=== PATIENT | female | born 1935 | race Caucasian/White ===

== ENCOUNTER 2017-05-14 12:56 | Emergency (ER) | payer MEDICARE ==
[2017-05-14] MEDS ORDERED: Aspirin Low Dose CHEW TAB* 81 MG PO ONE (13:10)
--- NOTE | 2017-05-14 13:41 | RAD ---
HISTORY: Syncope COMPARISONS: May 26, 2016 VIEWS:1: Single frontal portable view of the chest at 1:20 PM FINDINGS: LINES AND TUBES: None. CARDIOMEDIASTINAL SILHOUETTE: The cardiomediastinal silhouette is normal for portable technique. PLEURA: The costophrenic angles are sharp. No pleural abnormalities are noted. LUNG PARENCHYMA: The lungs are clear. ABDOMEN: The upper abdomen is clear. There is no subphrenic gas. BONES AND SOFT TISSUES: No bone or soft tissue abnormalities are noted. IMPRESSION: NO ACTIVE CARDIOPULMONARY DISEASE.
--- NOTE | 2017-05-14 13:54 | RAD ---
Indication: Fall, syncope. CT of the brain was performed without IV contrast. Ventricular structures are midline. No midline shift is noted. The extra-axial spaces are unremarkable. There is no evidence of intracranial mass or hemorrhage. No other high or low density lesions are identified. Mastoid air cells and paranasal sinuses are unremarkable. IMPRESSION: No intracranial mass or hemorrhage is noted.
--- NOTE | 2017-05-14 14:02 | RAD ---
Indication: Fall, T10 tenderness. CT of the thoracic spine was obtained in the axial plane. Sagittal and coronal reconstructed images were obtained. Skull base demonstrates no fracture. Mastoid air cells are unremarkable. Degenerative changes of the atlantoaxial joint is noted. Disc space narrowing at C3-C4, C4-C5, C5-C6 and C6-C7 is noted. No fracture is identified. Mild wedge deformity of T1 is noted. This is likely old. IMPRESSION: No fracture is identified. Multilevel degenerative disc disease at C2-C3, C3-C4, C4-C5, C5-C6 and C6-C7. No fracture is noted.
--- NOTE | 2017-05-14 14:03 | RAD ---
HISTORY: Fall, T10 tenderness COMPARISONS: None TECHNIQUE: Multiple contiguous axial CT scans were obtained of the thoracic spine without intravenous contrast, with coronal and sagittal multiplanar reformations. FINDINGS: SPINAL CANAL: Evaluation of the central canal is limited on CT technique; however, there is no obvious canalicular mass or epidural hemorrhage. ALIGNMENT: The alignment is normal. VERTEBRAL BODIES: The vertebral bodies are preserved in height. There is multilevel anterolateral marginal osteophyte formation. Multiple Schmorl's nodes are noted. There is diffuse osteopenia. JOINTS: There is osteoarthritis of the costovertebral joints. MUSCULATURE: Unremarkable INTERVERTEBRAL DISCS: There is diffuse loss of intervertebral disc height throughout the spine. AXIAL IMAGES: There is no osseous central canal stenosis or neuroforaminal narrowing. SOFT TISSUES: The visualized soft tissues of the chest and abdomen are unremarkable. OTHER: None IMPRESSION: OSTEOPENIA. DEGENERATIVE DISC DISEASE AND OSTEOARTHRITIS. THE VERTEBRAL BODIES ARE PRESERVED IN HEIGHT
[2017-05-14 14:19] LABS: Hematocrit 36 % (35-47); Hemoglobin 11.9 g/dl (12.0-16.0); Mean Corpuscular HGB Conc 34 g/dl (31-36); Mean Corpuscular Hemoglobin 31 pg (27-31); Mean Corpuscular Volume 93 fL (80-97); Mean Platelet Volume 8 um3 (7.4-10.4); Red Blood Count 3.81 10^6/ul (4.0-5.4); Red Cell Distribution Width 13 % (10.5-15); White Blood Count 6.5 10^3/ul (3.5-10.8)
[2017-05-14 14:37] LABS: Albumin 3.7 g/dL (3.2-5.2); BUN/Creatinine Ratio 19.4 (8-20); EGFR African American 99.7 (>60); EGFR Non-African American 77.5 (>60); Globulin 3.1 g/dL (2-4); Potassium 3.7 mmol/L (3.5-5.0); Total Bilirubin 0.6 mg/dL (0.2-1.0); Total Protein 6.8 g/dL (6.4-8.9)
[2017-05-14 14:38] LABS: Troponin I 0.01 ng/mL (<0.04)
[2017-05-14 15:45] LABS: Urine Bacteria 1+ (Absent); Urine Bilirubin Negative (Negative); Urine Glucose Negative (Negative); Urine Nitrite Positive (Negative)
[2017-05-14] MEDS ORDERED: Ciprofloxacin TAB* 500 MG PO ONE (15:46)
--- NOTE | 2017-05-14 15:49 | ED ---
Layla Vazquez Thomas, scribed for Elle Andujar MD on 05/14/17 at 1323 . Syncope/Near Syncope - HPI Summary HPI Summary: The pt is a 82 y/o F presenting to the ED c/o a fall that occurred last night at 22:00 during a syncopal episode. She denies any memory of this syncope and is unsure whether or not she struck her head. Following this syncope, she was unable to stand up and was on the floor for three hours before she was able to use the bed to pull herself up. She denies feeling dizzy before this syncopal episodes; however, she has been intermittently dizzy for the last month and reports 4 falls in the last month similar to the one that occurred last night. She has been told that she has not been drinking enough water, and she reports that drinking water alleviates this dizziness. Pt additionally c/o neck pain, chills (yesterday and today), and chronic urinary frequency. She also wears a lidocaine patch on her arm for an unspecified chronic complaint. Pt denies fever , cough, rhinorrhea, dysuria, hematuria, CP, SOB, or any other pains. PMHx: DM ( takes metformin). SHx: no smoking, no alcohol use, no illicit drug use. She does not normally check her blood glucose. She is scheduled for an upcoming appointment with Dr. Bone regarding her dizziness. She is not on blood thinners. She lives at [facility] [place] that seems to be assisted living. Her PCP is Dr. Gutierrez. She is accompanied by her son. - History Of Current Complaint Chief Complaint: EDSyncope Time Seen by Provider: 05/14/17 13:09 Hx Obtained From: Patient, Family/Mesh Man - son in room Onset/Duration: Sudden Onset, Lasting Hours - syncopal episode yesterday at 22: 00 Context: Unwitnessed Activity At Onset: Other - Walking to bathroom Associated Signs And Symptoms: Dizzy - intermittent for the last month, Other - POS: neck pain, chills; NEG: fever, cough, rhinorrhea, dysuria, hematuria, CP, SOB, any other pains Related History: Similar Episode/Dx as - syncopal episodes with dizziness 4x in the last month - Allergies/Home Medications Allergies/Adverse Reactions: Allergies Allergy/AdvReac Type Severity Reaction Status Date / Time Codeine Allergy Stomach Verified 04/19/14 09:48 Cramps Oxycodone Allergy Nausea And Verified 04/19/14 09:48 Vomiting Penicillins Allergy See Comment Verified 04/19/14 09:48 Home Medications: Home Medications Cholecalciferol TAB* [Vitamin D TAB*] 1,000 unit PO DAILY 05/14/17 [History Confirmed 05/14/17] Cyanocobalamin TAB* [Vitamin B12 TAB*] 1,000 mcg PO DAILY 05/14/17 [History Confirmed 05/14/17] Fexofenadine (NF) [Kamila 180 (NF)] 180 mg PO DAILY PRN 05/14/17 [History Confirmed 05/14/17] Gabapentin CAP(*) [Neurontin 100 mg CAP(*)] 100 mg PO BEDTIME 05/14/17 [History Confirmed 05/14/17] Glucosamine-Chondroitin [Osteo Bi-Flex Regular Str] 1 tab PO DAILY 05/14/17 [ History Confirmed 05/14/17] Metformin ER (NF) [Glucophage ER 750 MG TAB (NF)] 750 mg PO DAILY 05/14/17 [ History Confirmed 05/14/17] Multiple Vitamins W/ Minerals [Centrum Silver 50+Women] 1 tab PO DAILY 05/14/17 [History Confirmed 05/14/17] Pregabalin CAP(*) [Lyrica CAP(*)] 50 mg PO DAILY 05/14/17 [History Confirmed ] Probiotic Product [Probiotic Daily] 1 cap PO DAILY 05/14/17 [History Confirmed 05/14/17] Timolol 0.5% OPTH.ELSIE* [Timoptic 0.5% Opth*] 1 drop BOTH EYES BEDTIME 05/14/17 [ History Confirmed 05/14/17] PMH/Surg Hx/FS Hx/Imm Hx Previously Healthy: No Endocrine/Hematology History: Reports: Hx Diabetes - metformin Cardiovascular History: Denies: Hx Myocardial Infarction - Cancer History Hx Chemotherapy: No Hx Radiation Therapy: No - Surgical History Surgery Procedure, Year, and Place: Appendectomy Infectious Disease History: No Infectious Disease History: Denies: Traveled Outside the [place] in Last 30 Days - Family History Known Family History: Positive: Diabetes - Social History Alcohol Use: None Substance Use Type: Reports: None Smoking Status (MU): Never Smoked Tobacco Review of Systems Positive: Chills. Negative: Fever Negative: Nasal Discharge Negative: Chest Pain Positive: Cough. Negative: Shortness Of Breath Negative: dysuria, hematuria Positive: Other - POS: neck pain; NEG: any other pains Neurological: Other - POS: intermittently dizzy over the last month Positive: Syncope - with fall, last night at 22:00, unwitnessed All Other Systems Reviewed And Are Negative: Yes Physical Exam Triage Information Reviewed: Yes Vital Signs On Initial Exam: Initial Vitals Temp Pulse Resp BP Pulse Ox 97.5 F 87 14 134/90 97 05/14/17 12:57 05/14/17 12:57 05/14/17 12:57 05/14/17 12:57 05/14/17 12:57 Vital Signs Reviewed: Yes Appearance: Positive: Well-Appearing, No Pain Distress Skin: Positive: Warm, Skin Color Reflects Adequate Perfusion, Dry Eyes: Positive: EOMI, MARYCARMEN ENT: Positive: Pharynx normal, TMs normal Neck: Positive: Supple, Nontender Respiratory/Lung Sounds: Positive: Clear to Auscultation, Breath Sounds Present. Negative: Rales, Rhonchi, Wheezes Cardiovascular: Positive: RRR. Negative: Murmur, Rub, Other - NEG: gallop Abdomen Description: Positive: Nontender, Soft. Negative: Distended, Guarding, Other: - NEG: rebound Bowel Sounds: Positive: Present Musculoskeletal: Positive: Strength/ROM Intact, Other - There is some paraspinal tenderness about T10. There is also some paraspinal tenderness at her neck.. Negative: Edema Left, Edema Right Neurological: Positive: Sensory/Motor Intact, Alert, Oriented to Person Place, Time, CN Intact II-III Psychiatric: Positive: Affect/Mood Appropriate - Chan Coma Scale Coma Scale Total: 15 Diagnostics - Vital Signs Vital Signs Temp Pulse Resp BP Pulse Ox 05/14/17 13:20 98 05/14/17 13:15 79 17 93 05/14/17 13:13 114/62 05/14/17 13:09 98.7 F 80 16 114/62 100 05/14/17 12:57 97.5 F 87 14 134/90 97 - Laboratory Lab Results: Lab Results 05/14/17 05/14/17 05/14/17 Range/Units 14:03 14:03 14:03 WBC 6.5 (3.5-10.8) 10^3/ul RBC 3.81 L (4.0-5.4) 10^6/ul Hgb 11.9 L (12.0-16.0) g/dl Hct 36 (35-47) % MCV 93 (80-97) fL MCH 31 (27-31) pg MCHC 34 (31-36) g/dl RDW 13 (10.5-15) % Plt Count 235 (150-450) 10^3/ul MPV 8 (7.4-10.4) um3 Neut % (Auto) 68.6 (38-83) % Lymph % (Auto) 20.2 L (25-47) % [place] % (Auto) 9.3 H (1-9) % Eos % (Auto) 0.9 (0-6) % Baso % (Auto) 1.0 (0-2) % Absolute Neuts (auto) 4.4 (1.5-7.7) 10^3/ul Absolute Lymphs (auto) 1.3 (1.0-4.8) 10^3/ul Absolute Monos (auto) 0.6 (0-0.8) 10^3/ul Absolute Eos (auto) 0.1 (0-0.6) 10^3/ul Absolute Basos (auto) 0.1 (0-0.2) 10^3/ul Absolute Nucleated RBC 0 10^3/ul Nucleated RBC % 0 Sodium 138 (133-145) mmol/L Potassium 3.7 (3.5-5.0) mmol/L Chloride 103 (101-111) mmol/L Carbon Dioxide 28 (22-32) mmol/L Anion Gap 7 (2-11) mmol/L BUN 14 (6-24) mg/dL Creatinine 0.72 (0.51-0.95) mg/dL Est GFR ( Amer) 99.7 (>60) Est GFR (Non-Af Amer) 77.5 (>60) BUN/Creatinine Ratio 19.4 (8-20) Glucose 117 H (70-100) mg/dL Lactic Acid 1.1 (0.5-2.0) mmol/L Calcium 9.0 (8.6-10.3) mg/dL Total Bilirubin 0.60 (0.2-1.0) mg/dL AST 19 (13-39) U/L ALT 17 (7-52) U/L Alkaline Phosphatase 58 (34-104) U/L Total Creatine Kinase 185 (10-223) U/L Troponin I 0.01 (<0.04) ng/mL Total Protein 6.8 (6.4-8.9) g/dL Albumin 3.7 (3.2-5.2) g/dL Globulin 3.1 (2-4) g/dL Albumin/Globulin Ratio 1.2 (1-3) Urine Color Urine Appearance Urine pH (5-9) Ur Specific [place] (1.010-1.030) Urine Protein (Negative) Urine Ketones (Negative) Urine Blood (Negative) Urine Nitrate (Negative) Urine Bilirubin (Negative) Urine Urobilinogen (Negative) Ur Leukocyte Esterase (Negative) Urine WBC (Auto) (Absent) Urine RBC (Auto) (Absent) Ur Squamous Epith Cells (Absent) Urine Bacteria (Absent) Hyaline Casts (Absent) Urine Glucose (Negative) 05/14/17 Range/Units 14:50 WBC (3.5-10.8) 10^3/ul RBC (4.0-5.4) 10^6/ul Hgb (12.0-16.0) g/dl Hct (35-47) % MCV (80-97) fL MCH (27-31) pg MCHC (31-36) g/dl RDW (10.5-15) % Plt Count (150-450) 10^3/ul MPV (7.4-10.4) um3 Neut % (Auto) (38-83) % Lymph % (Auto) (25-47) % [place] % (Auto) (1-9) % Eos % (Auto) (0-6) % Baso % (Auto) (0-2) % Absolute Neuts (auto) (1.5-7.7) 10^3/ul Absolute Lymphs (auto) (1.0-4.8) 10^3/ul Absolute Monos (auto) (0-0.8) 10^3/ul Absolute Eos (auto) (0-0.6) 10^3/ul Absolute Basos (auto) (0-0.2) 10^3/ul Absolute Nucleated RBC 10^3/ul Nucleated RBC % Sodium (133-145) mmol/L Potassium (3.5-5.0) mmol/L Chloride (101-111) mmol/L Carbon Dioxide (22-32) mmol/L Anion Gap (2-11) mmol/L BUN (6-24) mg/dL Creatinine (0.51-0.95) mg/dL Est GFR ( Amer) (>60) Est GFR (Non-Af Amer) (>60) BUN/Creatinine Ratio (8-20) Glucose (70-100) mg/dL Lactic Acid (0.5-2.0) mmol/L Calcium (8.6-10.3) mg/dL Total Bilirubin (0.2-1.0) mg/dL AST (13-39) U/L ALT (7-52) U/L Alkaline Phosphatase (34-104) U/L Total Creatine Kinase (10-223) U/L Troponin I (<0.04) ng/mL Total Protein (6.4-8.9) g/dL Albumin (3.2-5.2) g/dL Globulin (2-4) g/dL Albumin/Globulin Ratio (1-3) Urine Color Yellow Urine Appearance Cloudy Urine pH 6.0 (5-9) Ur Specific [place] 1.012 (1.010-1.030) Urine Protein Negative (Negative) Urine Ketones Negative (Negative) Urine Blood Negative (Negative) Urine Nitrate Positive H (Negative) Urine Bilirubin Negative (Negative) Urine Urobilinogen Negative (Negative) Ur Leukocyte Esterase 3+ H (Negative) Urine WBC (Auto) 3+(>20/hpf) H (Absent) Urine RBC (Auto) Trace(0-2/hpf) (Absent) Ur Squamous Epith Cells Present H (Absent) Urine Bacteria 1+ H (Absent) Hyaline Casts Present H (Absent) Urine Glucose Negative (Negative) Result Diagrams: 05/14/17 14:03 05/14/17 14:03 Lab Statement: Any lab studies that have been ordered have been reviewed, and results considered in the medical decision making process. - Radiology CXR Xray Interpretation: No Acute Changes - CXR reveals no active cardiopulmonary disease. ED physician has reviewed this radiology report and agrees. Radiology Interpretation Completed By: Radiologist - CT CT Brain CT Interpretation: No Acute Changes - CT Brain reveals no intracranial mass or hemorrhage is noted. ED physician has reviewed this radiology report and agrees. CT Interpretation Completed By: Radiologist CT C-Spine CT Interpretation: No Acute Changes - CT C-Spine reveals No fracture is identified. Multilevel degenerative disc disease at C2-C3, C3-C4, C4-C5, C5-C6 and C6-C7. No fracture is noted. ED physician has reviewed this radiology report and agrees. CT Interpretation Completed By: Radiologist CT T-Spine CT Interpretation: No Acute Changes - CT T-Spine reveals OSTEOPENIA. DEGENERATIVE DISC DISEASE AND OSTEOARTHRITIS. THE VERTEBRAL BODIES ARE PRESERVED IN HEIGHT. ED physician has reviewed this radiology report and agrees. CT Interpretation Completed By: Radiologist - EKG 13:05 Cardiac Rate: NL - 81 BPM EKG Interpretation: Sinus rhythm with PVCs. Nonspecific lateral T-wave changes EKG Comparison: Other - Nonspecific lateral T-wave changes are new compared to 12/17/09 Course/Dx Course Of Treatment: 82 yo female who passed out last night she has had multiple episodes of near syncope in the past, she did not have any preceding symptoms. she does have a urine that looks like it could be infected. A discussion at length was had with pt and her son about obv admission but pt and her son are fine with her going home, pt was adament - Diagnoses Provider Diagnoses: UTI (urinary tract infection), Syncope, Cervical strain Discharge - Discharge Plan Condition: Stable Disposition: HOME Prescriptions: Ciprofloxacin TAB* [Cipro 500 MG TAB*] 500 mg PO BID #[id number] tab Referrals: Leilani Gutierrez DIRECTOR OF VITAL STATISTICS [Primary Care Provider] - 3 Days The documentation as recorded by the Layla negrete Thomas accurately reflects the service I personally performed and the decisions made by me, Elle Andujar MD.
[2017-05-14 16:03] VITALS: BP 109/71
--- NOTE | 2017-05-16 18:11 | PN ---
Progress Note - Progress Note Date of Service: 05/16/17 Note: Patient urine culture grew E coli >100,000. Patient placed on cipro which final culture shows that is resistant to. Due to allergy with PCN and resistance to bactrim will use macrobid which is sensitive to. Macrobid 100mg bid x7 days sent to pharmacy. spoke with patient and informed of need to change medication.
== END 2017-05-14 16:19 | disposition home or self-care (01) ==
LOC: ED 12:56
DX: N39.0 Urinary tract infection, site not specified (principal); R55 Syncope and collapse; S16.1XXA Strain of muscle, fascia and tendon at neck level, initial encounter; W19.XXXA Unspecified fall, initial encounter; Y93.9 Activity, unspecified; Y92.9 Unspecified place or not applicable; Y99.9 Unspecified external cause status
CPT/HCPCS: 36415; 70450; 71010; 72125; 72128; 80053; 81003; 81015; 82550; 83605; 84484; 85025; 87077; 87086; 87186; 93005; 99283; A9270-GY

== ENCOUNTER 2023-10-26 12:49 | Inpatient (IN) ==
[2023-10-26 13:30] LABS: ABS Basophils 0.2 10^3/uL (0.0-0.1); ABS Lymphocytes 0.5 10^3/uL (1.0-4.8); ABS Monocytes 0.7 10^3/uL (0.0-0.9); ABS Neutrophils 9.7 10^3/uL (1.5-7.6); ABS Nucleated RBC 0.01 10^3/ul; Eosinophil % 0.1 %; Hematocrit 36.6 % (35-45); Hemoglobin 12.6 g/dL (11.5-14.3); Lymphocyte % 4.6 %; Mean Corpuscular Hemoglobin 31.7 pg (27-33); Mean Corpuscular Hgb Conc 34.3 g/dL (31-36); Mean Corpuscular Volume 92.5 fL (80-97); Mean Platelet Volume 8.5 fL (7.5-11.2); Nucleated Red Blood Cells % 0.1 %/100WBC (0.0-0.8); Platelet Count 242 10^3/uL (150-450); Red Blood Count 3.96 10^6/uL (3.63-4.92); Red Cell Distribution Width 12.9 % (12-17); White Blood Count 11.1 10^3/uL (3.8-11.8)
[2023-10-26 13:45] LABS: Albumin 3.7 g/dL (3.2-5.2); C Reactive Protein 103.51 mg/L (<8.01); Calcium 8.9 mg/dL (8.6-10.3); Creatinine, Serum 0.78 mg/dL (0.51-0.95); Direct Bilirubin 0.2 mg/dL (0.03-0.18); Globulin 3.7 g/dL (2-4); HDL Cholesterol 37.2 mg/dL; Indirect Bilirubin 0.8 mg/dL (0.3-1.0); Total Protein 7.4 g/dL (6.4-8.9)
[2023-10-26 13:53] LABS: Activated Partial Thrombo Time 29.4 seconds (26.0-38.0); INR 1.09 (0.83-1.13)
[2023-10-26 14:13] LABS: Urine Appearance Turbid; Urine Bilirubin Negative (Negative); Urine Blood 1+ (Negative); Urine Color Yellow; Urine Glucose Negative (Negative); Urine Ketones Negative (Negative); Urine Nitrite 2+ (Negative); Urine Protein 1+ (>=30 mg/dL) (Negative); Urine Urobilinogen Negative (Negative)
[2023-10-26 14:22] LABS: Urine Bacteria 1+ /HPF (Absent); Urine Red Blood Cell 3+(>10/hpf) /HPF (0-Trace); Urine Renal Epithelial Cells Present /HPF (Absent); Urine Squamous Epithelial Cell Present /HPF (Absent); Urine White Blood Cell 3+(>20/hpf) /HPF (0-Trace)
[2023-10-26] MEDS: Cefepime 1 GM in Dextrose 1 GM/50 ML BAG IV ONE (14:58)
[2023-10-26] MEDS: Vancomycin 1,000 MG in NS 0.9% 250 ml 250 ML IVPB ONE (15:04)
[2023-10-26] MEDS: Lactated Ringers SEPSIS* BAG 2,040 ML IV ONE (15:20)
[2023-10-26 15:57] LABS: High Sensitivity Troponin 1 Hr 14 pg/mL (<15)
[2023-10-26] MEDS: Enoxaparin 40 MG/0.4 ML SYR SUBCUT SCH (18:40)
[2023-10-26] MEDS: Lactated Ringers 1000 ml BAG 1,000 ML IV ONE (20:22)
[2023-10-26] MEDS: Remdesivir 100 mg Vial 200 MG in NS 0.9% 250 ml 210 ML IV ONE (20:37)
[2023-10-26] MEDS: Clotrimazole 1% CREAM 30 gm TOPICAL SCH (22:34)
[2023-10-26] MEDS: CMCS:Dorzolamide/Timolol OPTH (NF) 10 ML BOT BOTH EYES SCH (23:10)
[2023-10-27 05:02] LABS: ABS Basophils 0.1 10^3/uL (0.0-0.1); ABS Lymphocytes 0.8 10^3/uL (1.0-4.8); ABS Monocytes 0.3 10^3/uL (0.0-0.9); ABS Neutrophils 12.2 10^3/uL (1.5-7.6); Hematocrit 35.6 % (35-45); Mean Corpuscular Hemoglobin 31.5 pg (27-33); Mean Corpuscular Hgb Conc 33.6 g/dL (31-36); Mean Corpuscular Volume 93.5 fL (80-97); Mean Platelet Volume 8.4 fL (7.5-11.2); Platelet Count 210 10^3/uL (150-450); Red Blood Count 3.81 10^6/uL (3.63-4.92); Red Cell Distribution Width 12.7 % (12-17); White Blood Count 13.4 10^3/uL (3.8-11.8)
[2023-10-27 05:12] LABS: INR 1.16 (0.83-1.13)
[2023-10-27 05:20] LABS: Albumin 3.5 g/dL (3.2-5.2); Calcium 8.7 mg/dL (8.6-10.3); Creatinine, Serum 0.73 mg/dL (0.51-0.95); Globulin 3.5 g/dL (2-4); Potassium 4.6 mmol/L (3.5-5.0); Total Bilirubin 0.5 mg/dL (0.2-1.0); eGFR CKD-EPI 79.1 (>60)
[2023-10-27] MEDS ORDERED: Dextrose 50% Syringe 50 ml 25 GM/50 ML SYRINGE IV PUSH PRN (07:24)
[2023-10-27] MEDS: cefTRIAXone 1 gm/50 mL D5W 1 GM/50 ML BAG IV SCH (20:24)
[2023-10-27] MEDS ORDERED: Remdesivir 100 mg Vial 100 MG in NS 0.9% 250 ml 230 ML IV SCH (21:00)
[2023-10-27] MEDS ORDERED: cefTRIAXone 1 gm/50 mL D5W 1 GM/50 ML BAG IV SCH (21:00)
[2023-10-27] MEDS: Remdesivir 100 mg Vial 100 MG in NS 0.9% 250 ml 230 ML IV SCH (21:40)
[2023-10-28] MEDS: Haloperidol 5 mg/ml SDV IV/IM 5 MG/ML AMP IM PRN ×2 (00:56→02:45)
[2023-10-28] MEDS: Haloperidol 5 mg/ml SDV IV/IM 5 MG/ML AMP IM ONE (02:52)
[2023-10-28 09:55] LABS: INR 1.1 (0.83-1.13)
[2023-10-28 10:57] LABS: Albumin 3.5 g/dL (3.2-5.2); Calcium 8.6 mg/dL (8.6-10.3); Creatinine, Serum 0.75 mg/dL (0.51-0.95); Globulin 3.5 g/dL (2-4); Potassium 3.6 mmol/L (3.5-5.0); Total Bilirubin 0.3 mg/dL (0.2-1.0); eGFR CKD-EPI 76.5 (>60)
[2023-10-28] MEDS: Insulin GLARGINE 100 un/ml 10 ml VIAL SUBCUT SCH (21:00)
[2023-10-29 08:41] LABS: ABS Lymphocytes 1.1 10^3/uL (1.0-4.8); ABS Monocytes 0.9 10^3/uL (0.0-0.9); ABS Neutrophils 13.8 10^3/uL (1.5-7.6); ABS Nucleated RBC 0.01 10^3/ul; Hemoglobin 11.7 g/dL (11.5-14.3); Lymphocyte % 6.8 %; Mean Corpuscular Hemoglobin 31.3 pg (27-33); Mean Corpuscular Hgb Conc 33.6 g/dL (31-36); Mean Corpuscular Volume 93.1 fL (80-97); Platelet Count 273 10^3/uL (150-450); Red Blood Count 3.75 10^6/uL (3.63-4.92); Red Cell Distribution Width 13.2 % (12-17); White Blood Count 15.8 10^3/uL (3.8-11.8)
[2023-10-29 08:42] LABS: INR 1.06 (0.83-1.13)
[2023-10-29 09:07] LABS: Albumin 3.2 g/dL (3.2-5.2); C Reactive Protein 46.85 mg/L (<8.01); Calcium 8.3 mg/dL (8.6-10.3); Creatinine, Serum 0.75 mg/dL (0.51-0.95); Globulin 3.2 g/dL (2-4); Potassium 3.7 mmol/L (3.5-5.0); Total Bilirubin 0.3 mg/dL (0.2-1.0); Total Protein 6.4 g/dL (6.4-8.9); eGFR CKD-EPI 76.5 (>60)
[2023-10-30 07:00] LABS: INR 1.06 (0.83-1.13)
[2023-10-30 07:15] LABS: Albumin 3.2 g/dL (3.2-5.2); Calcium 8.1 mg/dL (8.6-10.3); Creatinine, Serum 0.72 mg/dL (0.51-0.95); Globulin 3.1 g/dL (2-4); Potassium 3.4 mmol/L (3.5-5.0); Total Bilirubin 0.3 mg/dL (0.2-1.0); Total Protein 6.3 g/dL (6.4-8.9); eGFR CKD-EPI 80.4 (>60)
[2023-10-30] MEDS: Potassium Chlor 20 meq TAB.ER PO ONE (07:57)
[2023-10-31 07:44] LABS: ABS Eosinophils 0.2 10^3/uL (0.0-0.5); ABS Lymphocytes 1.6 10^3/uL (1.0-4.8); ABS Monocytes 0.7 10^3/uL (0.0-0.9); ABS Neutrophils 6.3 10^3/uL (1.5-7.6); ABS Nucleated RBC 0.01 10^3/ul; Eosinophil % 2.1 %; Hematocrit 36.9 % (35-45); Hemoglobin 12.6 g/dL (11.5-14.3); Lymphocyte % 18.6 %; Mean Corpuscular Hgb Conc 34.1 g/dL (31-36); Mean Corpuscular Volume 93.8 fL (80-97); Mean Platelet Volume 8.4 fL (7.5-11.2); Nucleated Red Blood Cells % 0.1 %/100WBC (0.0-0.8); Platelet Count 252 10^3/uL (150-450); Red Blood Count 3.93 10^6/uL (3.63-4.92); White Blood Count 8.8 10^3/uL (3.8-11.8)
[2023-10-31 08:21] LABS: INR 1.09 (0.83-1.13)
[2023-10-31 08:22] LABS: Calcium 7.9 mg/dL (8.6-10.3); Creatinine, Serum 0.71 mg/dL (0.51-0.95); Globulin 3.1 g/dL (2-4); Potassium 3.7 mmol/L (3.5-5.0); Total Bilirubin 0.3 mg/dL (0.2-1.0); Total Protein 6.1 g/dL (6.4-8.9); eGFR CKD-EPI 81.7 (>60)
[2023-11-02 10:01] VITALS: BP 127/66
[2023-11-02] MEDS: Magnesium Hydroxide LIQ 30 ML UDC PO PRN (10:04)
[2023-11-02 10:50] LABS: Calcium 8.1 mg/dL (8.6-10.3); Creatinine, Serum 0.7 mg/dL (0.51-0.95); Magnesium 1.8 mg/dL (1.9-2.7); Phosphorus 3.1 mg/dL (2.5-5.0); Potassium 3.9 mmol/L (3.5-5.0); eGFR CKD-EPI 83.1 (>60)
== END 2023-11-02 14:20 | DRG 871 ==
LOC: EDHOLD 12:49 → ED 12:49 → MED 10-27 12:49 → SUATTDRO 10-28 15:10
PROVIDERS: ADMIT Hospitalist; ATTEND Internal Medicine